=== PATIENT | female | born 1955 | race Caucasian/White ===

== ENCOUNTER 2018-10-19 20:22 | Inpatient (IN) | payer OTHER ==
[~2018-10-19] VITALS: Ht 167.6 cm; Wt 84.8 kg
[2018-10-20 01:01] LABS: BASOPHIL % 0.5 % (0-2); PLATELET COUNT 382 x10^3mcL (130-400); RED CELL DISTRIBUTION WIDTH 13.1 % (11.5-14.5)
[2018-10-20 01:10] LABS: C REACTIVE PROTEIN 2.5 mg/dL (<=0.9); CALCIUM 8.7 mg/dL (8.5-10.1); CARBON DIOXIDE 27.5 mmol/L (21-32); POTASSIUM SERUM 4.4 mmol/L (3.5-5.1)
[2018-10-20 01:44] LABS: ERYTHROCYTE SED RATE 99 mm/hr (0-30)
[2018-10-20 12:08] VITALS: BP 199/101
[2018-10-20 15:54] VITALS: BP 143/75
[2018-10-20 21:14] VITALS: BP 143/65
[2018-10-21 05:44] VITALS: BP 149/73
[2018-10-21 06:39] LABS: BASOPHIL % 0.8 % (0-2); PLATELET COUNT 316 x10^3mcL (130-400); RED CELL DISTRIBUTION WIDTH 13.3 % (11.5-14.5)
[2018-10-21 06:46] LABS: CALCIUM 8.3 mg/dL (8.5-10.1); CARBON DIOXIDE 23.7 mmol/L (21-32); CREATININE SERUM 1.1 mg/dL (0.6-1.0); POTASSIUM SERUM 4.7 mmol/L (3.5-5.1)
[2018-10-21 10:24] VITALS: BP 160/74
[2018-10-21 17:43] VITALS: BP 208/98
[2018-10-21 20:00] VITALS: BP 151/70
[2018-10-21] MEDS ORDERED: METFORMIN HCL500 MG PO (20:09)
[2018-10-21] MEDS ORDERED: CLONIDINE HCL0.1 MG PO (20:10)
[2018-10-21] MEDS ORDERED: LOP100 PO (20:11)
[2018-10-21] MEDS ORDERED: LOPRESSOR50 M1 PO (20:14)
[2018-10-21] MEDS ORDERED: ISOSORBIDE DINIT5 M2 PO (20:15)
[2018-10-21] MEDS ORDERED: HCTZ/LISINOPRIL1 TA1 (20:17)
[2018-10-21] MEDS ORDERED: ADULT ASPIRIN81 MG PO (20:18)
[2018-10-21] MEDS ORDERED: NOR10 (20:19)
[2018-10-21] MEDS ORDERED: NEU300 (20:20)
[2018-10-21] MEDS ORDERED: ACARBOSE50 MG PO (20:20)
[2018-10-21] MEDS ORDERED: HYDROCHLOROTH12.5 M3 PO (20:27)
[2018-10-21 23:00] VITALS: BP 131/63
[2018-10-22 05:20] VITALS: BP 138/68
[2018-10-22 13:53] VITALS: BP 163/77
[2018-10-22 17:38] VITALS: BP 168/72
[2018-10-22 19:36] VITALS: BP 143/62
[2018-10-23 05:02] VITALS: BP 143/68
[2018-10-23 08:31] VITALS: BP 171/83
[2018-10-23 13:20] VITALS: BP 119/76
[2018-10-23 13:21] VITALS: BP 119/76
== END 2018-10-23 17:42 | disposition home or self-care (01) | DRG 305 ==
LOC: ED 20:22 → MU 10-20 03:34
PROVIDERS: Emergency Medicine; Podiatrist Foot & Ankle Surgery; ADMIT Internal Medicine Pulmonary Disease
PROC: 0Y6M0ZF Detachment at Right Foot, Partial 5th Ray, Open Approach (ICD-10-PCS; principal; 2018-10-22 12:00)
DX: E11.69 Type 2 diabetes mellitus with other specified complication (principal); E11.65 Type 2 diabetes mellitus with hyperglycemia; L03.031 Cellulitis of right toe; M84.475A Pathological fracture, left foot, initial encounter for fracture; E78.5 Hyperlipidemia, unspecified; L85.3 Xerosis cutis; I25.10 Atherosclerotic heart disease of native coronary artery without angina pectoris; M86.8X7 Other osteomyelitis, ankle and foot; I12.9 Hypertensive chronic kidney disease with stage 1 through stage 4 chronic kidney disease, or unspecified chronic kidney disease; N18.2 Chronic kidney disease, stage 2 (mild); E11.621 Type 2 diabetes mellitus with foot ulcer; E78.00 Pure hypercholesterolemia, unspecified; Z86.73 Personal history of transient ischemic attack (TIA), and cerebral infarction without residual deficits; Z87.81 Personal history of (healed) traumatic fracture; Z88.8 Allergy status to other drugs, medicaments and biological substances
CPT/HCPCS: 82962; 87116; 87206; J0360; J1170; J1815; J1885; J2250; J2270; J2405; J2543; J2704; J3010; J3370; J3490; J7030; J7050; Q0092

== ENCOUNTER 2019-08-10 13:52 | Emergency (ER) | payer OTHER ==
[~2019-08-10] VITALS: Ht 170.2 cm; Wt 80.3 kg
[~2019-08-10 13:52] MED LIST: ACARBOSE50 MG PO; ADULT ASPIRIN81 MG PO; CLONIDINE HCL0.1 MG PO; HCTZ/LISINOPRIL1 TA1; HYDROCHLOROTH12.5 M3 PO; ISOSORBIDE DINIT5 M2 PO; LOP100 PO; LOPRESSOR50 M1 PO; METFORMIN HCL500 MG PO; NEU300; NOR10
[2019-08-10 14:04] VITALS: BP 116/64; Ht 170.2 cm; Wt 80.3 kg
== END 2019-08-10 15:27 | disposition left against medical advice (07) ==
LOC: ED 13:52
DX: Z53.21 Procedure and treatment not carried out due to patient leaving prior to being seen by health care provider (principal)

== ENCOUNTER 2020-06-21 13:37 | Inpatient (IN) | payer OTHER ==
[~2020-06-21] VITALS: Ht 170.2 cm; Wt 68.7 kg
[~2020-06-21 13:37] MED LIST changes: +ADULT ASPIRIN R81 MG PO; -ADULT ASPIRIN81 MG PO
[2020-06-21 13:43] VITALS: Ht 170.2 cm; Wt 68.7 kg
[2020-06-21 14:23] LABS: PLATELET COUNT 331 x10^3mcL (130-400)
[2020-06-21 15:03] LABS: UA SPECIFIC GRAVITY 1.025 (1.005-1.035); microscopic required? YES; urine erythrocyte 2+ (NEGATIVE)
[2020-06-21 15:10] LABS: BAND NEUTROPHIL 6 % (0-10); METAMYELOCTE 3 % (0-2); MONOCYTE 4 % (0-7); SEGMENTED NEUTROPHILS 83 % (37-75)
[2020-06-21] MEDS ORDERED: ACETAMINOPHEN325 M3 PO (15:14)
[2020-06-21] MEDS ORDERED: ARGINAID PO (15:15)
[2020-06-21 15:16] LABS: PLATELET MORPHOLOGY PLATELETS NORMAL; rbc morphology (normal/abnorm) NORMAL (NORMAL)
[2020-06-21] MEDS ORDERED: ATORVASTATIN CA40 M1 PO (15:16)
[2020-06-21] MEDS ORDERED: PLA75 PO (15:17)
[2020-06-21] MEDS ORDERED: DULCOLAX10 M1 RC (15:17)
[2020-06-21] MEDS ORDERED: IRON325 M3 PO (15:18)
[2020-06-21] MEDS ORDERED: FLEET ENEMA135 ML PR (15:18)
[2020-06-21] MEDS ORDERED: GABAPENTIN300 M4 PO (15:19)
[2020-06-21] MEDS ORDERED: GLUCAGON EMERGEN1 MG IJ (15:20)
[2020-06-21] MEDS ORDERED: HUMALOG100 U/ML SC (15:23)
[2020-06-21] MEDS ORDERED: DEX4 GLUCOSE15 GM PO (15:23)
[2020-06-21] MEDS ORDERED: THE MEDICI400 MG/5 M PO (15:26)
[2020-06-21] MEDS ORDERED: ZIN PO (15:27)
[2020-06-21 16:11] LABS: BILIRUBIN TOTAL 0.51 mg/dL (0.20-1.00); CALCIUM 8.3 mg/dL (8.5-10.1); CARBON DIOXIDE 12.9 mmol/L (21-32); CREATININE SERUM 3.7 mg/dL (0.6-1.0)
[2020-06-21 16:14] LABS: ALBUMIN 1.1 g/dL (3.4-5.0); TOTAL PROTEIN, SERUM 5.9 g/dL (6.4-8.2)
[2020-06-21 16:18] LABS: POTASSIUM SERUM 6.6 mmol/L (3.5-5.1)
[2020-06-21 20:49] VITALS: BP 121/69
[2020-06-21 21:29] LABS: CALCIUM 9.3 mg/dL (8.5-10.1); CARBON DIOXIDE 19.9 mmol/L (21-32); CREATININE SERUM 3.7 mg/dL (0.6-1.0); POTASSIUM SERUM 5.3 mmol/L (3.5-5.1)
[2020-06-21 23:20] VITALS: BP 130/68
[2020-06-22 03:37] VITALS: BP 128/50
[2020-06-22 08:00] VITALS: BP 101/67
[2020-06-22 08:20] LABS: BILIRUBIN TOTAL 0.28 mg/dL (0.20-1.00); CALCIUM 6.7 mg/dL (8.5-10.1); CALCIUM 7.2 mg/dL (8.5-10.1); CARBON DIOXIDE 13.6 mmol/L (21-32); CARBON DIOXIDE 15.9 mmol/L (21-32); CREATININE SERUM 2.8 mg/dL (0.6-1.0); MAGNESIUM 1.9 mg/dL (1.8-2.4); PHOSPHOROUS 3.8 mg/dL (2.5-4.9); POTASSIUM SERUM 3.9 mmol/L (3.5-5.1); POTASSIUM SERUM 4.1 mmol/L (3.5-5.1)
[2020-06-22 08:23] LABS: ALBUMIN 0.8 g/dL (3.4-5.0); TOTAL PROTEIN, SERUM 5.2 g/dL (6.4-8.2)
[2020-06-22 08:32] LABS: PLATELET COUNT 274 x10^3mcL (130-400); RED CELL DISTRIBUTION WIDTH 13.8 % (11.5-14.5)
[2020-06-22 10:19] LABS: BAND NEUTROPHIL 4 % (0-10); MONOCYTE 4 % (0-7); PLATELET MORPHOLOGY PLATELETS NORMAL; SEGMENTED NEUTROPHILS 87 % (37-75); rbc morphology (normal/abnorm) NORMAL (NORMAL)
[2020-06-22 12:35] VITALS: BP 103/58
[2020-06-22 16:28] VITALS: BP 118/70
[2020-06-22 21:57] VITALS: BP 140/76
[2020-06-23] VITALS (7 sets, daily range): BP systolic 102–137; BP diastolic 50–78
[2020-06-23 07:11] LABS: PLATELET COUNT 310 x10^3mcL (130-400); RED CELL DISTRIBUTION WIDTH 14.1 % (11.5-14.5)
[2020-06-23 08:22] LABS: ALBUMIN 0.9 g/dL (3.4-5.0); BILIRUBIN TOTAL 0.51 mg/dL (0.20-1.00); CALCIUM 8.5 mg/dL (8.5-10.1); CARBON DIOXIDE 12.4 mmol/L (21-32); CREATININE SERUM 3.1 mg/dL (0.6-1.0); MAGNESIUM 2.3 mg/dL (1.8-2.4); PHOSPHOROUS 4.9 mg/dL (2.5-4.9); POTASSIUM SERUM 4.8 mmol/L (3.5-5.1); TOTAL PROTEIN, SERUM 6.3 g/dL (6.4-8.2)
[2020-06-23 13:02] LABS: BAND NEUTROPHIL 5 % (0-10); MONOCYTE 2 % (0-7); PLATELET MORPHOLOGY PLATELETS NORMAL; SEGMENTED NEUTROPHILS 88 % (37-75); rbc morphology (normal/abnorm) NORMAL (NORMAL)
[2020-06-24 06:46] VITALS: BP 135/72
[2020-06-24 06:57] LABS: PLATELET COUNT 257 x10^3mcL (130-400); RED CELL DISTRIBUTION WIDTH 13.9 % (11.5-14.5)
[2020-06-24 07:25] LABS: BILIRUBIN TOTAL 0.62 mg/dL (0.20-1.00); CALCIUM 8.2 mg/dL (8.5-10.1); CARBON DIOXIDE 15.6 mmol/L (21-32); CREATININE SERUM 2.8 mg/dL (0.6-1.0); MAGNESIUM 2.5 mg/dL (1.8-2.4); POTASSIUM SERUM 4.6 mmol/L (3.5-5.1)
[2020-06-24 07:32] LABS: ALBUMIN 0.9 g/dL (3.4-5.0); TOTAL PROTEIN, SERUM 5.9 g/dL (6.4-8.2)
[2020-06-24 08:02] VITALS: BP 129/77
[2020-06-24 11:31] LABS: BAND NEUTROPHIL 3 % (0-10); MONOCYTE 2 % (0-7); PLATELET MORPHOLOGY PLATELETS NORMAL; SEGMENTED NEUTROPHILS 90 % (37-75); rbc morphology (normal/abnorm) NORMAL (NORMAL)
[2020-06-24 11:38] VITALS: BP 141/76
[2020-06-24 16:14] VITALS: BP 114/73
[2020-06-24 21:27] VITALS: BP 119/64
[2020-06-25 03:31] VITALS: BP 94/53
[2020-06-25 05:50] VITALS: BP 116/60
[2020-06-25 06:44] LABS: PLATELET COUNT 240 x10^3mcL (130-400)
[2020-06-25 07:17] VITALS: BP 103/55
[2020-06-25 07:33] LABS: BILIRUBIN TOTAL 0.6 mg/dL (0.20-1.00); CALCIUM 7.1 mg/dL (8.5-10.1); CARBON DIOXIDE 16.1 mmol/L (21-32); CREATININE SERUM 2.6 mg/dL (0.6-1.0); MAGNESIUM 2.2 mg/dL (1.8-2.4); POTASSIUM SERUM 4.9 mmol/L (3.5-5.1)
[2020-06-25 07:35] LABS: ALBUMIN 0.9 g/dL (3.4-5.0); TOTAL PROTEIN, SERUM 5.3 g/dL (6.4-8.2)
[2020-06-25 08:36] LABS: RED CELL DISTRIBUTION WIDTH 14.6 % (11.5-14.5)
[2020-06-25 12:22] VITALS: BP 97/64
[2020-06-25 13:54] LABS: BAND NEUTROPHIL 2 % (0-10); SEGMENTED NEUTROPHILS 92 % (37-75)
[2020-06-25 13:55] LABS: MONOCYTE 1 % (0-7); PLATELET MORPHOLOGY LARGE PLATELET SEEN; rbc morphology (normal/abnorm) NORMAL (NORMAL)
[2020-06-25 16:07] VITALS: BP 115/60
[2020-06-25 19:53] VITALS: BP 126/62
[2020-06-26 05:40] VITALS: BP 113/68
[2020-06-26 07:04] LABS: PLATELET COUNT 233 x10^3mcL (130-400)
[2020-06-26 07:18] LABS: RED CELL DISTRIBUTION WIDTH 14.8 % (11.5-14.5)
[2020-06-26 07:20] VITALS: BP 69/45
[2020-06-26 07:35] LABS: BILIRUBIN TOTAL 0.62 mg/dL (0.20-1.00); CARBON DIOXIDE 18.1 mmol/L (21-32); CREATININE SERUM 2.4 mg/dL (0.6-1.0); MAGNESIUM 2.3 mg/dL (1.8-2.4)
[2020-06-26 07:38] LABS: ALBUMIN 0.9 g/dL (3.4-5.0); TOTAL PROTEIN, SERUM 5.9 g/dL (6.4-8.2)
[2020-06-26 08:12] LABS: BAND NEUTROPHIL 13 % (0-10); BASOPHIL 0 % (0-2); MONOCYTE 1 % (0-7); SEGMENTED NEUTROPHILS 80 % (37-75)
[2020-06-26 08:14] LABS: PLATELET MORPHOLOGY LARGE PLATELET SEEN; burr cell (echinocyte) 1+; ovalocyte/elliptocyte 1+; rbc morphology (normal/abnorm) ABNORMAL (NORMAL); tear drop cell (dacryocyte) 1+
[2020-06-26 13:04] VITALS: BP 107/69
[2020-06-26 16:50] VITALS: BP 134/70
[2020-06-26 20:34] VITALS: BP 120/59
[2020-06-27 05:35] VITALS: BP 120/67
[2020-06-27 08:25] VITALS: BP 92/60
[2020-06-27 10:29] VITALS: BP 92/60
== END 2020-06-27 11:17 | disposition hospice, home (50) | DRG 720 ==
LOC: ED 13:37 → IC 17:09 → DU 17:09 → IC 18:14 → DU 06-22 12:42
PROVIDERS: Emergency Medicine; Internal Medicine; ADMIT Hospitalist; ATTEND Hospitalist
DX: A41.9 Sepsis, unspecified organism (principal); I21.A1 Myocardial infarction type 2; E43 Unspecified severe protein-calorie malnutrition; N17.0 Acute kidney failure with tubular necrosis; R57.0 Cardiogenic shock; G93.40 Encephalopathy, unspecified; I48.0 Paroxysmal atrial fibrillation; E86.0 Dehydration; I25.10 Atherosclerotic heart disease of native coronary artery without angina pectoris; E11.22 Type 2 diabetes mellitus with diabetic chronic kidney disease; F03.90 Unspecified dementia, unspecified severity, without behavioral disturbance, psychotic disturbance, mood disturbance, and anxiety; G81.91 Hemiplegia, unspecified affecting right dominant side; N18.9 Chronic kidney disease, unspecified; I42.9 Cardiomyopathy, unspecified; I12.9 Hypertensive chronic kidney disease with stage 1 through stage 4 chronic kidney disease, or unspecified chronic kidney disease; E78.5 Hyperlipidemia, unspecified; R65.20 Severe sepsis without septic shock; N39.0 Urinary tract infection, site not specified; Z20.828 Contact with and (suspected) exposure to other viral communicable diseases; E87.5 Hyperkalemia; Z88.8 Allergy status to other drugs, medicaments and biological substances; Z86.73 Personal history of transient ischemic attack (TIA), and cerebral infarction without residual deficits
CPT/HCPCS: 82962; 83880; 85378; 97110-GP; 97112-GP; 97530-GP; G0378; J0610; J0696; J1160; J1644; J1815; J2543; J3490; J7030; J7050; Q0092